=== PATIENT | female | born 1955 | race Hispanic/Latino ===

== ENCOUNTER → 2019-07-11 | Outpatient (CLI) | payer BC ==
--- NOTE | 2019-07-11 14:34 | Diagnostic Imaging Report ---
EXAMINATION: HIP RIGHT 2-3 VW (+/- PELVIS) INDICATION: Right hip pain COMPARISON: None FINDINGS: AP and frog-leg images of the right hip were obtained. No acute fracture or dislocation. Mild gluteal enthesopathy. Mild degenerative changes of the right hip joint. IMPRESSION: No acute osseous injury. Mild right hip degenerative changes. Signed by: Christian Eduardo MD on 07/11/2019 2:31 PM
== END ==
LOC: RAD 13:47
PROVIDERS: ATTEND Family Medicine
DX: M25.551 Pain in right hip (principal)